=== PATIENT | female | born 1990 | race Caucasian/White ===

== ENCOUNTER 2023-08-21 21:29 | Observation (INO) | payer OTHER, SELFPAY ==
[2023-08-21 21:43] VITALS: BMI 25.2
[2023-08-21 21:45] VITALS: BP 134/84
[2023-08-21 22:53] LABS: % Basophils 0.3 % (0-2); % Eosinophils 0.9 % (0-6); % Immature Granulocytes 0.8 % (0-0.5); % Lymphocytes 20.3 % (20.5-51.1); % Neutrophils 71.7 % (42.2-75.2); Absolute Eosinophils 0.1 10^3/uL (0-0.7); Absolute Immature Granulocytes 0.1 10^3/uL (0-0.05); Absolute Lymphocytes 2.7 10^3/uL (1.2-3.4); Absolute Monocytes 0.8 10^3/uL (0.1-0.6); Absolute Neutrophils 9.4 10^3/uL (1.4-6.5); Hematocrit 34.6 % (37.0-47.0); Mean Corp Hgb Conc. 34.7 g/dL (33.0-37.0); Mean Corpuscular Volume 92.3 fL (81.0-99.0); Mean Platelet Volume 11.4 fL (7.4-10.4); Nucleated Red Blood Cells % 0 %; Platelet Count 166 10^3/uL (130-400); Red Blood Cell Count 3.75 10^6/uL (4.20-5.40); Red Cell Dist. Width 13.2 % (11.5-14.5); White Blood Cell Count 13.1 10^3/uL (4.8-10.8)
[2023-08-21 23:04] LABS: INR 0.95; PT 12.5 Sec (11.4-14.6)
[2023-08-21 23:05] LABS: ALT (SGPT) 20 U/L (0-35); APTT 28.6 Sec (23.4-35.0); AST (SGOT) 25 U/L (14-36); Albumin 3.7 g/dl (3.5-5.0); Alkaline Phosphatase 133 U/L (38-126); Blood Urea Nitrogen 9 mg/dl (7-17); Calcium 9.3 mg/dl (8.4-10.2); Carbon Dioxide 20 mmol/L (22-30); Chloride 107 mmol/L (98-107); Estimated Creatinine Clearance > 125 ml/min; Glucose 79 mg/dl (70-99); Potassium 3.8 mmol/L (3.5-5.1); Sodium 135 mmol/L (135-145); Total Bilirubin 0.3 mg/dl (0.2-1.3); Total Protein 6.6 g/dl (6.3-8.2); Uric Acid 4.4 mg/dl (2.5-6.2); eGFR > 60.00
[2023-08-21 23:15] LABS: Urine Albumin Negative (Neg - Trace); Urine Bilirubin Negative (Negative); Urine Character Clear (Clear); Urine Color Yellow; Urine Glucose Negative (Negative); Urine Ketone 2+ (Negative); Urine Leukocyte Negative (Negative); Urine Nitrite Negative (Negative); Urine Occult Blood Negative (Negative); Urine Specific Gravity 1.005 (<1.030); Urine Urobilinogen Negative (Neg - 1+); Urine pH 6.5 (5.0-9.0)
[2023-08-21 23:23] LABS: Protein/creatinine Ratio 0.5; Urine Protein 12 mg/dl
[2023-08-22] MEDS: CELESTONE SOLUSPAN 2 MG IM (00:25)
--- NOTE | 2023-08-22 03:21 | DOWNTIME ---
There was a [employer] Downtime on 08/21/2023 from 0100 to 08/22/2023 at 0300. Downtime documentation of patient's care, including medication administrations, has been reconciled in the electronic record per guidelines. Refer to the
patient's paper chart under the miscellaneous tab to see printed paper medication records and downtime forms.
[2023-08-22] MEDS: SYNTHROID 100 MCG PO (07:17)
== END 2023-08-22 09:39 | disposition home or self-care (01) ==
LOC: LDRP 21:29
PROVIDERS: ADMITTING PHYSICIAN Obstetrics & Gynecology
DX: R10.13 Epigastric pain (principal); R07.81 Pleurodynia; J45.909 Unspecified asthma, uncomplicated; O14.03 Mild to moderate pre-eclampsia, third trimester; Z3A.34 34 weeks gestation of pregnancy; O99.283 Endocrine, nutritional and metabolic diseases complicating pregnancy, third trimester; E03.9 Hypothyroidism, unspecified; Z86.16 Personal history of COVID-19; O09.813 Supervision of pregnancy resulting from assisted reproductive technology, third trimester; Z79.890 Hormone replacement therapy
CPT/HCPCS: 96372; J0702; 76700; 76805; 80053; 81003; 82570; 84156; 84550; 85025; 85610; 85730; 86850; 86900; 86901; 87070; G0378

== ENCOUNTER 2023-10-04 07:33 | Inpatient (IN) | payer OTHER, SELFPAY ==
[2023-10-04] MEDS: LR 1000 IV ×2 (10:00→11:27)
[2023-10-04 11:50] LABS: % Basophils 0.5 % (0-2); % Eosinophils 0.5 % (0-6); % Immature Granulocytes 0.5 % (0-0.5); % Lymphocytes 18.9 % (20.5-51.1); % Monocytes 5.7 % (1.7-9.3); % Neutrophils 73.9 % (42.2-75.2); Absolute Basophils 0.1 10^3/uL (0-0.2); Absolute Eosinophils 0.1 10^3/uL (0-0.7); Absolute Immature Granulocytes 0.1 10^3/uL (0-0.05); Absolute Lymphocytes 1.9 10^3/uL (1.2-3.4); Absolute Monocytes 0.6 10^3/uL (0.1-0.6); Absolute Neutrophils 7.6 10^3/uL (1.4-6.5); Hematocrit 37.8 % (37.0-47.0); Hemoglobin 13.1 g/dL (12.0-16.0); Mean Corp Hgb Conc. 34.7 g/dL (33.0-37.0); Mean Corpuscular Volume 92.4 fL (81.0-99.0); Mean Platelet Volume 12.2 fL (7.4-10.4); Nucleated Red Blood Cells % 0 %; Platelet Count 157 10^3/uL (130-400); Red Blood Cell Count 4.09 10^6/uL (4.20-5.40); Red Cell Dist. Width 13.5 % (11.5-14.5); White Blood Cell Count 10.3 10^3/uL (4.8-10.8)
[2023-10-04] MEDS: PITOCIN 30 UNITS/NSS 500 ML IV (11:50)
[2023-10-04 12:06] LABS: ALT (SGPT) 26 U/L (0-35); AST (SGOT) 33 U/L (14-36); Alkaline Phosphatase 206 U/L (38-126); Blood Urea Nitrogen 11 mg/dl (7-17); Calcium 9.5 mg/dl (8.4-10.2); Carbon Dioxide 23 mmol/L (22-30); Chloride 107 mmol/L (98-107); Glucose 58 mg/dl (70-99); Sodium 136 mmol/L (135-145); Total Bilirubin 0.4 mg/dl (0.2-1.3); Total Protein 6.9 g/dl (6.3-8.2); eGFR > 60.00
[2023-10-04 13:45] LABS: Protein/creatinine Ratio 0.4; Urine Protein 10 mg/dl
[2023-10-04] MEDS: TYLENOL 1000 MG PO (22:11)
[2023-10-04] MEDS: SUBLIMAZE 100 MCG EPIDURAL (22:12)
[2023-10-04] MEDS: FENTANYL/BUPIVACAINE 100 EPIDURAL (22:12)
[2023-10-05] MEDS: FENTANYL/BUPIVACAINE 100 EPIDURAL (05:29)
[2023-10-05] MEDS: BICITRA 30 ML PO (07:37)
[2023-10-05] MEDS: ANCEF 10 IV (07:37)
[2023-10-05] MEDS: TYLENOL 1000 MG PO (07:37)
[2023-10-05] MEDS: ZITHROMAX INFUSION 250 IV (07:37)
[2023-10-05 09:55] VITALS: BP 107/64; BMI 26.7
[2023-10-05] MEDS: REGLAN 10 MG IV (13:02)
[2023-10-05] MEDS: BENADRYL 25 MG IV (14:45)
[2023-10-05] MEDS: TORADOL 15 MG IV ×2 (14:49→21:15)
[2023-10-06] MEDS: TORADOL 15 MG IV ×2 (03:20→09:05)
[2023-10-06 06:01] LABS: Hematocrit 31.9 % (37.0-47.0); Hemoglobin 10.7 g/dL (12.0-16.0); Mean Corp Hgb Conc. 33.5 g/dL (33.0-37.0); Mean Corpuscular Volume 95.5 fL (81.0-99.0); Platelet Count 137 10^3/uL (130-400); Red Blood Cell Count 3.34 10^6/uL (4.20-5.40); Red Cell Dist. Width 13.2 % (11.5-14.5); White Blood Cell Count 15.2 10^3/uL (4.8-10.8)
[2023-10-06] MEDS: SYNTHROID 50 MCG PO (07:13)
[2023-10-06] MEDS: PRENATAL PLUS 1 TABLET PO (09:05)
--- NOTE | 2023-10-06 12:45 | W.PN.ANS.POP ---
Anesthesia Post Operative
- Anesthesia Post Op Note
Vital Signs Stable-See Nursing Note: Yes
Airway Patent: Yes
Adequate Pain Control: Yes
Change in Mental Status: No
Current Postoperative Nausea & Vomiting: No
Anesthesia Complications: No
General Anesthetic Recall: No
Unplanned Admission: No
Post Op Hydration Adequate: Yes
[2023-10-06] MEDS: MOTRIN 600 MG PO ×2 (15:25→21:27)
[2023-10-06] MEDS: TYLENOL 650 MG PO (15:25)
[2023-10-06] MEDS: PERCOCET 5/325 1 TABLET PO (21:27)
[2023-10-06] MEDS: SENOKOT-S 1 TABLET PO (21:27)
[2023-10-07] MEDS: PERCOCET 5/325 1 TABLET PO ×2 (03:52→18:24)
[2023-10-07] MEDS: MOTRIN 600 MG PO ×3 (03:52→18:16)
[2023-10-07] MEDS: SYNTHROID 50 MCG PO (06:44)
[2023-10-07] MEDS: PRENATAL PLUS 1 TABLET PO (08:00)
[2023-10-07] MEDS: SENOKOT-S 1 TABLET PO (11:45)
[2023-10-07] MEDS: TYLENOL 650 MG PO (11:45)
[2023-10-07] MEDS: TYLENOL PO (18:16)
[2023-10-08] MEDS: PERCOCET 5/325 1 TABLET PO (01:37)
[2023-10-08] MEDS: MOTRIN 600 MG PO ×2 (01:38→08:58)
[2023-10-08] MEDS: SYNTHROID 50 MCG PO (06:07)
--- NOTE | 2023-10-08 08:25 | W.DS.TRANS ---
DC Summary - [employer]
-
Discharge Instructions:
Discharge Diagnosis/Procedures Section
Instructions:
Stand-Alone Forms: LDRP Delivery
Changes to Home Medications: No
Discharge Medications:
DC Medications w/original date entered in [facility]
levothyroxine 50 mcg tablet (Synthroid) 50 mcg PO DAILY@06 Thyroid 08/21/23
Vitamin 1 tab PO DAILY Supplement 10/04/23
acetaminophen 325 mg tablet 650 mg (2 x 325 mg) PO Q4HPRN PRN mild pain #0 tabs 10/08/23
ibuprofen 600 mg tablet 600 mg PO Q6HPRN PRN cramps #45 tabs 10/08/23
oxycodone-acetaminophen 5 mg-325 mg tablet 1 tab PO Q4HPRN PRN moderate pain #10 tabs 10/08/23
sennosides 8.6 mg-docusate sodium 50 mg tablet (Stool Softener-Laxative) 1 tab PO DAILYPRN PRN constipation #0 tabs 10/08/23
Home Medication Changes
Pending Results: No
[2023-10-08] MEDS: PRENATAL PLUS 1 TABLET PO (08:58)
[2023-10-08] MEDS: SENOKOT-S 1 TABLET PO (08:59)
[2023-10-08] MEDS: TYLENOL 650 MG PO (08:59)
[2023-10-09 09:57] LABS: Syphilis/T. pallidum Ab Reflex Negative (Negative)
== END 2023-10-08 14:11 | disposition home or self-care (01) | DRG 788 ==
LOC: LDRP 07:33
PROVIDERS: ADMITTING PHYSICIAN Obstetrics & Gynecology
PROC: 10907ZC Drainage of Amniotic Fluid, Therapeutic from Products of Conception, Via Natural or Artificial Opening (ICD-10-PCS; 2023-10-04)
PROC: 10D00Z1 Extraction of Products of Conception, Low, Open Approach (ICD-10-PCS; 2023-10-05)
DX: O48.0 Post-term pregnancy (principal); Z3A.41 41 weeks gestation of pregnancy; O14.04 Mild to moderate pre-eclampsia, complicating childbirth; O77.0 Labor and delivery complicated by meconium in amniotic fluid; O62.1 Secondary uterine inertia; Z37.0 Single live birth; O32.4XX0 Maternal care for high head at term, not applicable or unspecified
CPT/HCPCS: 80053; 82570; 84156; 85025; 85027; 86780; 86850; 86900; 86901

== ENCOUNTER → 2024-03-07 09:34 | Outpatient (REF) | payer BC, SELFPAY | LOC: HWRAD 09:34 | PROVIDERS: ATTENDING PHYSICIAN Nurse Practitioner Family | DX: N93.9 Abnormal uterine and vaginal bleeding, unspecified (principal) | CPT/HCPCS: 76830; 76856 ==